=== PATIENT | female | born 1970 | race Caucasian/White ===

== ENCOUNTER 2019-04-18 14:28 | Emergency (ER) | payer OTHER ==
--- NOTE | 2019-04-18 16:01 | EDM.PDOC ---
ED HPI GENERAL MEDICAL PROBLEM - General Chief Complaint: Lower Extremity Injury/Pain Stated Complaint: LEFT KNEE PAIN Time Seen by Provider: 04/18/19 14:48 Source of Information: Reports: Patient History Limitations: Reports: No Limitations - History of Present Illness INITIAL COMMENTS - FREE TEXT/NARRATIVE: 49 yo female presents to ER with pain in left knee. NO trauma to the knee. Pain begain last weekend. she was seen in this AM and had x-ray which was negative an MRI was ordered for later this week. pt did go to work today and states that her knee is popping and so painful she can hardly bear weight. no new injury to knee today. left;knee Pain Score (Numeric/FACES): 9 - Related Data Allergies Allergy/AdvReac Type Severity Reaction Status Date / Time adhesive Allergy Cannot Verified 04/18/19 15:01 Remember meloxicam Allergy Diarrhea Verified 04/18/19 15:01 Home Meds: Home Meds Vitamin B Complex [Complex B-100] 1 each PO DAILY 02/06/14 [History] Biotin 1 mg PO DAILY 03/16/14 [History] Cyclobenzaprine [Flexeril] 10 mg PO TID 03/16/14 [History] Ergocalciferol (Vitamin D2) [Drisdol] 50,000 unit PO DAILY 03/16/14 [History] Fluticasone Propionate [Flonase] 1 spray INH DAILY 03/16/14 [History] Levothyroxine Sodium [Synthroid] 75 mcg PO DAILY 03/16/14 [History] Promethazine [Phenergan] 25 mg PO Q4H PRN 03/16/14 [History] traZODone 50 mg PO BEDTIME 03/16/14 [History] Meclizine [Antivert] 25 mg PO DAILY 04/18/19 [History] Past Medical History - Past Surgical History HEENT Surgical History: Reports: Oral Surgery, Tonsillectomy GI Surgical History: Reports: Bariatric Procedure Female Surgical History: Reports: Section, D&C Musculoskeletal Surgical History: Reports: Carpal Tunnel, Knee Replacement, Shoulder Replacement Social & Family History - Tobacco Use Smoking Status *Q: Never Smoker - Recreational Drug Use Recreational Drug Use: No Review of Systems - Review of Systems Review Of Systems: See Below Constitutional: Denies: Chills, Fever Respiratory: Denies: Shortness of Breath, Wheezing Cardiovascular: Denies: Chest Pain GI/Abdominal: Denies: Abdominal Pain ED EXAM, GENERAL - Physical Exam Exam: See Below Exam Limited By: No Limitations General Appearance: Alert, WD/WN, No Apparent Distress Head: Atraumatic, Normocephalic Neck: Normal Inspection, Supple, Non-Tender Respiratory/Chest: No Respiratory Distress, Lungs Clear. No: Crackles, Rhonchi , Wheezing Cardiovascular: Regular Rate, Rhythm, No Murmur Extremities: Joint Swelling (mild left knee) Neurological: Alert, Oriented Skin Exam: Warm, Dry, Intact Course - Vital Signs Last Recorded V/S: Last Vital Signs Temp 36.1 C 04/18/19 15:00 Pulse 106 H 04/18/19 15:00 Resp 16 04/18/19 15:00 BP 156/108 H 04/18/19 15:00 Pulse Ox 96 04/18/19 15:00 - Re-Assessments/Exams Free Text/Narrative Re-Assessment/Exam: 04/18/19 16:11 continue with plan for MRI. weight bearing as tolerated. naproxen with ultram as needed for severe pain Departure - Departure Time of Disposition: 15:57 Disposition: Home, Self-Care 01 Condition: Good Clinical Impression: Knee pain, left Qualifiers: Chronicity: acute Qualified Code(s): M25.562 - Pain in left knee - Discharge Information *PRESCRIPTION DRUG MONITORING PROGRAM REVIEWED*: Not Applicable *COPY OF PRESCRIPTION DRUG MONITORING REPORT IN PATIENT JACE: Not Applicable Instructions: Knee Pain, Adult, [id number] Referrals: Shilpa Mancini PA [Primary Care Provider] - Forms: ED Department Discharge Additional Instructions: activity as tolerated use walker or cane ice as much as possible naproxen 1-2 tablets every 12 hours as needed for pain may use ultram for severe pain
== END 2019-04-18 16:21 | disposition home or self-care (01) ==
LOC: JP.ED 14:28
DX: M25.562 Pain in left knee (principal); Z88.8 Allergy status to other drugs, medicaments and biological substances; Z88.6 Allergy status to analgesic agent; Z79.899 Other long term (current) drug therapy
CPT/HCPCS: 99283

== ENCOUNTER 2020-07-18 08:10 | Day surgery (SDC) | payer OTHER ==
[2020-07-18] MEDS ORDERED: fentaNYL 100 MCG/2 ML SDV ONE (08:55)
[2020-07-18] MEDS ORDERED: Propofol 200 MG/20 ML SDV ONE (08:55)
[2020-07-18] MEDS ORDERED: Midazolam 1 MG/ML 2 ML SDV ONE (08:55)
[2020-07-18] MEDS ORDERED: Lactated Ringers 1,000 ML IV SCH (09:00)
[2020-07-18] MEDS ORDERED: Cyanocobalamin (Vitamin B12) 1,000 MCG/ML SDV IM ONE (09:30)
[2020-07-18] MEDS ORDERED: Glycopyrrolate 0.2 MG/ML 2 ML SDV IVPUSH ONE (10:00)
[2020-07-18] MEDS ORDERED: MVI, Adult with Vitamin K 10 ML, Thiamine 200 MG, Chromium/Copper/Mang/Selen/Zn 1 ML in... IV ONE ×4 (10:00)
--- NOTE | 2020-07-24 08:08 | OR ---
DATE OF PROCEDURE: 07/18/2020 SURGEON: Kennedy Gagnon MD PREOPERATIVE DIAGNOSIS: Weight regain status post Manjit-en-Y gastric bypass. 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 OPERATIVE PROCEDURE: Upper gastrointestinal endoscopy. ANESTHESIA: IV sedation. INDICATION FOR PROCEDURE: This is a 50-year-old status post Manjit-en-Y gastric bypass in 2009. Her preoperative weight at that time was 239 pounds and she did get down into the low 200s. Recently, she had weight regain and now is presently weighing 386 pounds. The plan is to proceed with upper GI endoscopy to try and identify correctable problems in regard to her bypass. Potential risks including bleeding and perforation were discussed, and the patient wishes to proceed. DETAILS OF PROCEDURE: The patient was taken to the operating room, placed in a left lateral decubitus position. IV sedation was administered, after which the upper GI endoscope was passed orally through the length of esophagus and into the gastric pouch and from there through the gastrojejunostomy roughly 20 cm into the Manjit limb. The gastrojejunostomy was fairly normally sized. There was, however, apart from that a fistula between the gastric pouch and the remainder of the stomach. The scope which measured a centimeter did not quite through that area, but certainly large enough that substantial amount of food would get past that and this resulted in significant problems with the weight regain. However, this would be likely surgically correctable. The scope was then withdrawn. The above findings reconfirmed, and the procedure concluded. Kennedy Gagnon MD /[id number]
== END 2020-07-18 13:09 | disposition home or self-care (01) ==
LOC: JP.SDS 08:10
PROVIDERS: ATTEND Surgery
DX: K31.6 Fistula of stomach and duodenum (principal); I10 Essential (primary) hypertension; E66.01 Morbid (severe) obesity due to excess calories; Z98.84 Bariatric surgery status; Z68.44 Body mass index [BMI] 60.0-69.9, adult
CPT/HCPCS: 43235; J2250; J2704; J3010; J3411; J3420; J3490; J7120

== ENCOUNTER 2020-09-01 06:22 | Inpatient (IN) | payer OTHER ==
[2020-09-01] MEDS ORDERED: cefOXitin 2 GM Vial ONE (06:54)
[2020-09-01] MEDS ORDERED: Celecoxib 200 MG Cap PO ONE (07:00)
[2020-09-01] MEDS ORDERED: Acetaminophen 500 MG Tab PO ONE (07:00)
[2020-09-01] MEDS ORDERED: Celecoxib 200 MG Cap PO SCH (07:00)
[2020-09-01] MEDS ORDERED: Scopolamine 1.5 MG Transdermal Patch TOP ONE (07:00)
[2020-09-01] MEDS ORDERED: Dextrose 5%-Lactated Ringers 1,000 ML IV SCH ×2 (07:30→12:45)
[2020-09-01] MEDS ORDERED: fentaNYL 250 MCG/5 ML SDV ONE ×2 (08:02→09:26)
[2020-09-01] MEDS ORDERED: Glycopyrrolate 0.2 MG/ML 5 ML MDV ONE (08:03)
[2020-09-01] MEDS ORDERED: Neostigmine Methylsulfate 1 MG/ML 5 ML Syringe ONE (08:03)
[2020-09-01] MEDS ORDERED: Ondansetron 4 MG/2 ML SDV ONE (08:03)
[2020-09-01] MEDS ORDERED: Dexamethasone 4 MG/ML SDV ONE (08:03)
[2020-09-01] MEDS ORDERED: Rocuronium 50 MG/5 ML Vial ONE ×2 (08:03→10:23)
[2020-09-01] MEDS ORDERED: Propofol 200 MG/20 ML SDV ONE (08:03)
[2020-09-01] MEDS ORDERED: Succinylcholine 200 MG/10 ML MDV ONE (08:03)
[2020-09-01] MEDS ORDERED: Lactated Ringers 1,000 ML ONE (08:06)
[2020-09-01] MEDS ORDERED: cefOXitin 2 GM in Sodium Chloride 0.9% 50 ML IV ONE (08:15)
[2020-09-01] MEDS ORDERED: Ketamine 500 MG/5 ML MDV IV SCH (08:45)
[2020-09-01] MEDS ORDERED: Ketamine 50 MG in Sodium Chloride 0.9% 49.5 ML IV SCH (08:45)
[2020-09-01] MEDS ORDERED: Lidocaine 1% with EPINEPHrine 1:100,000 50 ML MDV ONE (10:34)
[2020-09-01] MEDS ORDERED: Bupivacaine 0.5% 50 ML MDV ONE (10:34)
[2020-09-01] MEDS ORDERED: hydrOXYzine HCL 100 MG/2 ML SDV IM ONE (11:33)
[2020-09-01] MEDS ORDERED: Naloxone 0.4 MG/ML SDV IVPUSH PRN (11:39)
[2020-09-01] MEDS ORDERED: diphenhydrAMINE 50 MG/ML SDV IVPUSH PRN ×2 (11:39→13:00)
[2020-09-01] MEDS ORDERED: diphenhydrAMINE 25 MG Cap PO PRN (11:39)
[2020-09-01] MEDS ORDERED: Ondansetron 4 MG/2 ML SDV IVPUSH PRN (11:39)
[2020-09-01] MEDS ORDERED: HYDROmorphone/Normal Saline 15 MG/30 ML PCA IV PRN (11:39)
[2020-09-01] MEDS ORDERED: Naloxone 0.4 MG/ML SDV IV PRN (12:00)
[2020-09-01] MEDS ORDERED: Cyclobenzaprine 10 MG Tab PO PRN (12:37)
[2020-09-01] MEDS: Ketoconazole 2% Crm 30 GM Tube TOP SCH ×2 (12:38→20:33)
[2020-09-01] MEDS ORDERED: Meclizine 25 MG Tab PO PRN (12:40)
[2020-09-01] MEDS ORDERED: Albuterol/Ipratropium 3.0-0.5 MG/3 ML Neb Soln INH PRN (13:00)
[2020-09-01] MEDS ORDERED: Calcium Gluconate 10% 1 GM/10 ML SDV IVPUSH PRN (13:00)
[2020-09-01] MEDS ORDERED: hydrOXYzine HCL 100 MG/2 ML SDV IM PRN (13:00)
[2020-09-01] MEDS ORDERED: Acetaminophen 500 MG Tab PO PRN (13:00)
[2020-09-01] MEDS ORDERED: Labetalol 20 MG/4 ML Syringe IVPUSH PRN (13:00)
[2020-09-01] MEDS: Ondansetron 4 MG/2 ML SDV IVPUSH PRN ×2 (15:11→23:57)
[2020-09-01] MEDS: Metoclopramide 10 MG/2 ML SDV IVPUSH PRN (15:18)
[2020-09-01] MEDS: cefOXitin 2 GM in Sodium Chloride 0.9% 50 ML IV SCH ×2 (15:20→20:40)
[2020-09-01] MEDS ORDERED: Pantoprazole 40 MG Vial IVPUSH SCH (16:00)
[2020-09-01] MEDS ORDERED: MVI, Adult with Vitamin K 10 ML, Thiamine 200 MG, Chromium/Copper/Mang/Selen/Zn 1 ML in... IV SCH ×4 (16:00)
[2020-09-01] MEDS: Heparin Sodium 5,000 Units/ML Vial SUBCUT SCH (16:06)
[2020-09-01] MEDS: Acetaminophen 500 MG Tab PO SCH ×2 (16:12→23:26)
[2020-09-01] MEDS: traZODone 50 MG Tab PO SCH (20:34)
[2020-09-01] MEDS: Cyclobenzaprine 10 MG Tab PO SCH (20:39)
[2020-09-02] MEDS ORDERED: Loratadine 10 MG Tab PO ONE (00:47)
[2020-09-02] MEDS ORDERED: Pseudoephedrine 30 MG Tab PO ONE (00:47)
[2020-09-02] MEDS: Metoclopramide 10 MG/2 ML SDV IVPUSH PRN (01:14)
[2020-09-02] MEDS: cefOXitin 2 GM in Sodium Chloride 0.9% 50 ML IV SCH ×3 (03:20→15:17)
[2020-09-02] MEDS: Heparin Sodium 5,000 Units/ML Vial SUBCUT SCH ×2 (03:21→15:58)
[2020-09-02] MEDS ORDERED: Iohexol 647 MG/ML 50 ML SDV PO STA (03:36)
[2020-09-02] MEDS ORDERED: Ondansetron 4 MG Tab.DIS PO PRN (06:48)
[2020-09-02] MEDS: Levothyroxine 50 MCG Tab PO SCH (07:05)
[2020-09-02] MEDS: Dextrose 5%-Lactated Ringers 1,000 ML IV SCH (07:12)
[2020-09-02] MEDS: Acetaminophen 500 MG Tab PO SCH ×3 (08:20→23:21)
[2020-09-02] MEDS: Cyclobenzaprine 10 MG Tab PO SCH ×2 (08:40→21:03)
[2020-09-02] MEDS: Bisacodyl 5 MG Tab PO SCH ×2 (08:40→21:03)
[2020-09-02] MEDS: Fluticasone Propionate Nasal Spray 16 GM Bottle NASBOTH SCH (08:40)
[2020-09-02] MEDS: Docusate Sodium 100 MG Cap PO SCH ×2 (08:41→21:03)
[2020-09-02] MEDS: Celecoxib 200 MG Cap PO SCH ×2 (08:41→21:03)
[2020-09-02] MEDS: Ketoconazole 2% Crm 30 GM Tube TOP SCH ×2 (09:25→21:04)
[2020-09-02] MEDS: SCOPOLAMINE PATCH CHECK TOP SCH (09:25)
--- NOTE | 2020-09-02 10:11 | OR ---
DATE OF PROCEDURE: 09/01/2020 SURGEON: Kennedy Gagnon MD PREOPERATIVE DIAGNOSIS: Weight regain, status post gastric bypass associated with gastrogastric fistula. POSTOPERATIVE DIAGNOSES: 1. Weight regain, status post gastric bypass associated with gastrogastric fistula. 2. Segment of small bowel ischemic status post takedown of previous jejunojejunostomy. 3. Extensive intraabdominal adhesions. OPERATIVE PROCEDURES: Diagnostic laparoscopy converted to laparotomy with: 1. Revision of Manjit-en-Y gastric bypass (56363). 2. Small bowel resection (27292). 3. Placement of Interceed mesh to limit recurrent adhesion formation between pelvic and abdominal wall and underlying viscera (37605). ANESTHESIA: General. NAPPER GRINDER: Renetta Ureña PA-C INDICATIONS FOR PROCEDURE: This is a 50-year-old status post Manjit-en-Y gastric bypass in 2009. Her preoperative weight at that time was 434 pounds. She did get a good initial result, but there was progressive weight regain recently with weight presently at 386 pounds. The patient underwent an upper endoscopy recently which showed a gastrogastric fistula. The plan will be to proceed with a laparoscopic or if necessary open repair of the gastrogastric fistula. Given the amount of obesity, we will also refashion the Manjit limb to maximize the degree of malabsorption within physiologic limits. The potential risks of the procedure including bleeding, infection, leaks from various GI tract closures, problems with bowel obstruction over time, as well as possibility of cardiopulmonary, septic, or hemorrhagic complications leading to were discussed, and the patient wishes to proceed. DETAILS OF PROCEDURE: The patient was taken to the operating room, placed in a supine position. After general endotracheal anesthesia was induced, she was converted to a lithotomy position. Leonardo catheter was inserted, and the abdomen prepped and draped. 15 cm inferior and 5 cm left of the xiphoid process, a transverse incision was made and the peritoneal cavity entered under direct vision with an Optiview trocar, inflated to 15 mmHg pressure with CO2. Laparoscope was then reinserted. No underlying trocar insertion site injuries were seen. Following this, bilateral subcostal transversus abdominis plane blocks were placed and the 5 additional trocars were placed across the upper and mid abdomen. Some adhesions between the previous left lateral trocar site as well as the liver and anterior abdominal wall were then taken down with Harmonic Scalpel. Initial dissection in the area of the previous gastrojejunostomy revealed the area of fistulous formation. Once this was encircled, this was then divided with the SONAL black load. At that point, there appeared to be a free discontinuity between the gastric pouch and the previous stomach. An Domenica tube measuring 32-Maori had been placed per Anesthesia through the area of gastric pouch and through the proximal Manjit limb. The gastric pouch was then also imbricated with some [id number] sutures of 0 Ethibond stitch to further reduce the gastric pouch volume. At that point, the upper abdominal component appeared to be satisfactorily completed and was reinforced with some fibrin sealant. A drain was subsequently felt not to be necessary in that area. Attention was then taken to the small bowel. As one traced down the Manjit limb, it was noted to measure 150 cm. However, there were dense adhesions in the area of the previous jejunojejunostomy which was not easily visible given the patient's degree of obesity. Given this, we elected to convert to a small open incision. Trocars were removed, the peritoneal cavity deflated, and the remainder of the revision was completed with an open approach. Incision was made from the umbilicus roughly handsbreadth towards the xiphoid. This was much smaller than if the entire procedure had been done as an open approach. The adhesions along the jejunojejunostomy were then taken down. This allowed mobilization of it upward. The Manjit limb was once again confirmed to be 150 cm and was divided flush with the jejunojejunostomy. This area was somewhat ischemic and around 10 cm of the small bowel needed to be resected at that point to provide a distal Manjit limb that was satisfactorily vascularized. This was accomplished with SONAL wu at both the bowel and mesenteric level, and that specimen delivered from the field. The ileocecal valve was then identified and was traced out 160 cm distal to that due to the patient's small bowel elementary length of 300 cm. At that point, a [id number] enteroenterostomy was accomplished with an internal firing of the Endo-SONAL 60 mm stapler. The common opening was closed transversely with the same stapler and angles anastomosed reinforced with some 3-0 Vicryl stitch and mesenteric defect closed with 2-0 silk stitch. Of note, at this point, the Manjit limb was 140 cm, common limb 160 cm, and the newly fashioned biliopancreatic limb was 300 cm. The area of dissection was then inspected. No problems were noted. The small bowel anastomosis was reinforced with some fibrin sealant as was the mesenteric defect, and the abdomen irrigated with cefoxitin-containing saline solution. To limit recurrent adhesion formation between the pelvic and abdominal wall and underlying viscera, Interceed mesh was placed underneath the incision from there down toward the pelvis. The midline fascia was then approximated with #2 Vicryl stitch, the subcutaneous tissue with 2 layers of 3-0 and 4- 0 Vicryl stitch, and the skin with wu. This included stapling the previous trocar sites. The patient was taken to the recovery room in satisfactory condition. Physician music assistant, Renetta Ureña, played an essential role in assisting in this case, helping to position the patient, retract structures as needed, as well as suturing and cutting sutures when indicated. Her presence improved patient safety and decreased operative time. Kennedy Gagnon MD /[id number]
--- NOTE | 2020-09-02 10:13 | CR ---
UGI Limited HISTORY: Postbariatric surgery FINDINGS: Patient swallowed water-soluble contrast. Upright views of the abdomen show no evidence of extravasation or obstruction. IMPRESSION: Status post bariatric surgery No extravasation or obstruction seen
[2020-09-02] MEDS: Pantoprazole 40 MG Tab.CR PO SCH (11:33)
--- NOTE | 2020-09-02 15:18 | PN ---
DATE OF SERVICE: 09/02/2020 SUBJECTIVE: Sachin is postoperative day #1. Upper GI was normal. Vital signs have been stable with the exception of 2 elevated blood pressures at 190/90 and 140/87, thought to be associated with headache. Pain has been controlled with a PROCESS ANALYST. Oral intake 690, urine output via Leonardo catheter is 6225. REVIEW OF SYSTEMS: The remainder of review of systems is negative for any pertinent positives or negatives. OBJECTIVE: GENERAL: Sachin Scott is a pleasant 50-year-old female. She is alert and orientated. VITAL SIGNS: TPR at 0654 is 97.6, 95, 18, and blood pressure 135/87. HEENT: Negative. NECK: Supple. HEART: Regular rate and rhythm. LUNGS: Clear. ABDOMEN: Dressing is dry and intact. Abdominal binder is on. EXTREMITIES: SCDs are on, and there is no peripheral edema. ASSESSMENT: 1. Laparoscopic to laparotomy with;. a. Revision of Manjit-en-Y gastric bypass surgery. b. Small bowel resection. c. Placement of Interceed mesh. POSTOPERATIVE DIAGNOSES: 1. Weight regain secondary to gastrogastric fistula. 2. Segment small bowel ischemia after takedown of previous jejunojejunostomy. 3. Extensive intraabdominal adhesions. PLAN: 1. Decrease IV to 100 mL per hour. 2. Step 2 gastric bypass diet with no cereal. 3. Discontinue Leonardo. 4. Dulcolax 10 mg p.o. b.i.d. 5. Colace 100 mg p.o. b.i.d. 6. Discontinue Leonardo. 7. May shower. 8. Zofran ODT 4 mg q.4 hours p.r.n. nausea. 9. We will evaluate p.r.n. or in a.m. Renetta Ureña PA-C /[id number]
[2020-09-02] MEDS: MVI, Adult with Vitamin K 10 ML, Thiamine 200 MG, Chromium/Copper/Mang/Selen/Zn 1 ML in... IV SCH ×4 (15:55)
[2020-09-02] MEDS: traZODone 50 MG Tab PO SCH (21:04)
[2020-09-02] MEDS ORDERED: diphenhydrAMINE 25 MG Cap PO PRN (21:05)
[2020-09-03] MEDS: Dextrose 5%-Lactated Ringers 1,000 ML IV SCH ×2 (01:59→16:04)
[2020-09-03] MEDS: Heparin Sodium 5,000 Units/ML Vial SUBCUT SCH ×2 (04:13→16:17)
[2020-09-03] MEDS: Pantoprazole 40 MG Tab.CR PO SCH (07:12)
[2020-09-03] MEDS: Levothyroxine 50 MCG Tab PO SCH (07:12)
[2020-09-03] MEDS: Acetaminophen/HYDROcodone 325-5 MG Tab PO PRN ×4 (07:58→20:03)
[2020-09-03] MEDS: Hyoscyamine 0.125 MG Tab.SL SL PRN ×2 (07:59→16:15)
[2020-09-03] MEDS ORDERED: Cyanocobalamin (Vitamin B12) 1,000 MCG/ML SDV IM ONE (09:00)
[2020-09-03] MEDS: Fluticasone Propionate Nasal Spray 16 GM Bottle NASBOTH SCH (09:11)
[2020-09-03] MEDS: Docusate Sodium 100 MG Cap PO SCH ×2 (09:11→20:06)
[2020-09-03] MEDS: Cyclobenzaprine 10 MG Tab PO SCH ×2 (09:11→20:06)
[2020-09-03] MEDS: Bisacodyl 5 MG Tab PO SCH ×2 (09:11→20:06)
[2020-09-03] MEDS: Celecoxib 200 MG Cap PO SCH ×2 (09:11→20:06)
[2020-09-03] MEDS: Ketoconazole 2% Crm 30 GM Tube TOP SCH ×2 (09:12→20:06)
[2020-09-03] MEDS: SCOPOLAMINE PATCH CHECK TOP SCH (09:12)
--- NOTE | 2020-09-03 11:54 | PN ---
DATE OF SERVICE: 09/03/2020 SUBJECTIVE: Sachin is postop day #2. She is reporting that when she swallows liquids, it hurts to swallow in her midchest like she needs to burp. It is not all the time. Denies any radiation of pain and no shortness of breath and no cough. Pain does not radiate. Vital signs have been stable. She has been up ambulating in the villegas frequently. Oral intake 1940 and urine output 3250. REVIEW OF SYSTEMS: The remainder of review of systems is negative for any pertinent positives and negatives. OBJECTIVE: GENERAL: Sachin Scott is a pleasant, 50-year-old female. VITAL SIGNS: TPR is 96, 96, 18; blood pressure 125/89. HEENT: Negative. NECK: Supple. HEART: Regular rate and rhythm. LUNGS: Clear. ABDOMEN: Dressings dry and intact. Abdominal binder is on. EXTREMITIES: Trace peripheral edema. ASSESSMENT: 1. Laparoscopic to laparotomy with: a. Revision of Manjit-en-Y gastric bypass surgery. b. Small-bowel resection. c. Placement of Interceed mesh. POSTOPERATIVE DIAGNOSES: 1. Weight gain secondary to gastrogastric fistula. 2. Segment of small bowel, ischemic, after takedown of previous jejunojejunostomy. 3. Extensive intraabdominal adhesions. Date of procedure: 09/01/2020. Surgeon: Kennedy Gagnon MD. PLAN: 1. Levsin 0.125 mg sublingual every 4 hours p.r.n. esophageal spasms. 2. Discontinue NATIONAL RECRUITER. 3. [place] 5/325 mg 1 to 2 every 4 hours p.r.n. pain. 4. Discontinue Tylenol. 5. Saline lock IV. 6. The patient's nurse was notified that if that pain in her chest does not get better with swallowing, to notify Dr. Gagnon or myself. Continue good pulmonary and ambulation. 7. We will evaluate p.r.n. or in a.m. Renetta Ureña PA-C /[id number]
[2020-09-03] MEDS: Metoclopramide 10 MG/2 ML SDV IVPUSH PRN (14:30)
[2020-09-03] MEDS: MVI, Adult with Vitamin K 10 ML, Thiamine 200 MG, Chromium/Copper/Mang/Selen/Zn 1 ML in... IV SCH ×4 (16:08)
[2020-09-03] MEDS: traZODone 50 MG Tab PO SCH (20:06)
[2020-09-04] MEDS: Acetaminophen/HYDROcodone 325-5 MG Tab PO PRN ×2 (01:07→06:53)
[2020-09-04] MEDS: Heparin Sodium 5,000 Units/ML Vial SUBCUT SCH (04:53)
[2020-09-04] MEDS: Cyclobenzaprine 10 MG Tab PO SCH (08:30)
[2020-09-04] MEDS: Celecoxib 200 MG Cap PO SCH (08:31)
[2020-09-04] MEDS: Docusate Sodium 100 MG Cap PO SCH (08:31)
[2020-09-04] MEDS: Pantoprazole 40 MG Tab.CR PO SCH (08:31)
[2020-09-04] MEDS: Levothyroxine 50 MCG Tab PO SCH (08:32)
[2020-09-04] MEDS: Fluticasone Propionate Nasal Spray 16 GM Bottle NASBOTH SCH (08:32)
[2020-09-04] MEDS: Ketoconazole 2% Crm 30 GM Tube TOP SCH (08:32)
[2020-09-04] MEDS: Bisacodyl 5 MG Tab PO SCH (08:32)
--- NOTE | 2020-09-04 11:39 | DISCH ---
ADMISSION DIAGNOSES: 1. Weight regain after Manjit-en-Y gastric bypass surgery. 2. Morbid obesity. 3. BMI 67. 4. Essential hypertension. 5. Chronic sinusitis. 6. Allergic rhinitis. 7. Status post Manjit-en-Y gastric bypass surgery. 8. Vitamin D deficiency. 9. B12 deficiency. 10.Osteoarthritis of both knees. 11.Iron deficiency anemia. DISCHARGE DIAGNOSES: Diagnostic laparoscopy converted to laparotomy with: 1. Revision of Manjit-en-Y gastric bypass. 2. Small bowel resection. 3. Placement of Interceed mesh to limit recurrent adhesion formation between pelvic and abdominal wall and underlying viscera. POSTOPERATIVE DIAGNOSES: 1. Weight regain, status post gastric bypass associated with gastrogastric fistula. 2. Segment of small bowel ischemic, status post takedown of previous jejunojejunostomy. 3. Extensive intraabdominal adhesions. 4. Date of procedure: 09/01/2020. Surgeon: Kennedy Gagnon MD. HISTORY: Sachin is a 50-year-old female who is status post Manjit-en-Y gastric bypass surgery in 2009. Her preoperative weight at that time was 434 pounds. She did good initially but had progressive weight regain with the weight presently at 385. Preoperative evaluation of an endoscopy, which revealed a gastrogastric fistula. After preoperative evaluation and discussion of possible risks and possible complications, she wished to proceed with surgical procedure. HOSPITAL COURSE: Sachin had her surgery on 09/01/2020. She had no operative complications. On postoperative day #1, her upper GI was normal. She was started on step 2 gastric bypass diet. Her Leonardo was discontinued and she was started on bowel stimulation. On postoperative day #2, she was changed to oral pain medication, STEMHOLE BORER was discontinued, and she was having some pain when she would swallow in her upper chest and started on Levsin. On postoperative day #3, Sachin's pain was controlled. Her activity was good. Vital signs stable. Oral intake adequate at 1160. Urine output was 2000. She had 2 bowel movements and she was able to be discharged to home. PHYSICAL EXAMINATION: GENERAL: Sachin Scott is a pleasant 50-year-old female. VITAL SIGNS: Height 5 feet 3 inches, weight 381 pounds 9.6 ounces, BMI is 67.6. TPR 97.6, 89, 16, blood pressure 102/62. HEENT: Negative. NECK: Supple. HEART: Regular rate and rhythm. LUNGS: Clear. ABDOMEN: Aquacel dressings on the lower open incision and she has trocar sites sutured on an upper part of the abdomen. Abdominal binder has been on. EXTREMITIES: Without peripheral edema. DISPOSITION: Discharged to home. CONDITION: Stable and improving. FOLLOWUP: Appointment with Renetta Ureña PA-C, on 09/15/2020 at 10:30 a.m. HOME MEDICATIONS: 1. Celebrex 200 mg p.o. b.i.d. #28. 2. Hyoscyamine 0.125 mg sublingual every 4 hours p.r.n. esophageal spasms. 3. [place] 5/325 mg 1 tablet oral q.6 hours p.r.n. pain, #28. 4. Zofran ODT 4 mg p.o. q.4 hours p.r.n. nausea, vomiting #30. 5. She is to resume home medication: a. Pseudoephedrine 120 mg p.o. b.i.d. b. Zyrtec 10 mg p.o. b.i.d. c. Trazodone 100 to 150 mg p.o. at bedtime. d. Depo-Provera injection every 3 months. e. Triamcinolone cream 1 applicator topical t.i.d. f. Sumatriptan 100 mg p.o. p.r.n. headache. g. Phenergan 25 mg q.8 hours p.r.n. nausea. h. Nystatin cream 1 applicator topical t.i.d. i. Nystatin applicator topical q.12. j. Skelaxin 800 mg p.o. b.i.d. k. Antivert 25 mg p.o. t.i.d. p.r.n. dizziness. l. Synthroid 150 mcg p.o. daily. m. Flonase 1 to 2 sprays in each nostril daily. n. Epinephrine 0.3 IM 1 time p.r.n. o. Voltaren 1% gel 1 applicator topical q.i.d. p. Clotrimazole 1% topical b.i.d. p.r.n. q. Clobetasol 0.05% 1 applicator topical b.i.d. r. Astelin nasal solution 2 sprays in each nostril b.i.d. s. Tylenol 650 mg q6 to 8 hours p.r.n. pain. DIET: Step 2 gastric bypass diet with no cereal until 09/16/2020. ACTIVITY: No lifting greater than 10 pounds for 6 weeks. Other activity: Walk 6 times daily inside your home. Driving: Do not drive for 1 week or within 6 to 8 hours after taking [place]. Shower/bathing: May shower. DISCHARGE INSTRUCTIONS: Keep operative site clean and dry. Take off Aquacel dressing on 09/07/2020. Wear abdominal binder for 6 weeks or longer if tolerated. Notify provider if any fever, increased pain, swelling, redness, drainage, nausea, vomiting, and use incentive spirometer 10 times every hour while awake for 1 week. /[id number]
== END 2020-09-04 09:30 | disposition home or self-care (01) | DRG 329 ==
LOC: JP.SDSSCHI 06:22 → JP.SDS 06:22 → EDSTATUS 09:15 → JP.MS 11:00
PROVIDERS: ADMIT Surgery; ATTEND Surgery
PROC: 0DB80ZZ Excision of Small Intestine, Open Approach (ICD-10-PCS; principal; 2020-09-01)
PROC: 0D180Z8 Bypass Small Intestine to Small Intestine, Open Approach (ICD-10-PCS; 2020-09-01)
PROC: 3E0M05Z Introduction of Adhesion Barrier into Peritoneal Cavity, Open Approach (ICD-10-PCS; 2020-09-01)
DX: K95.89 Other complications of other bariatric procedure (principal); K55.011 Focal (segmental) acute (reversible) ischemia of small intestine; Z68.44 Body mass index [BMI] 60.0-69.9, adult; K31.6 Fistula of stomach and duodenum; R63.5 Abnormal weight gain; I10 Essential (primary) hypertension; J32.9 Chronic sinusitis, unspecified; E55.9 Vitamin D deficiency, unspecified; E53.8 Deficiency of other specified B group vitamins; D50.9 Iron deficiency anemia, unspecified; M17.0 Bilateral primary osteoarthritis of knee; K66.0 Peritoneal adhesions (postprocedural) (postinfection); J30.9 Allergic rhinitis, unspecified; K21.9 Gastro-esophageal reflux disease without esophagitis; Z96.659 Presence of unspecified artificial knee joint; Z91.09 Other allergy status, other than to drugs and biological substances; Z88.8 Allergy status to other drugs, medicaments and biological substances; Z79.899 Other long term (current) drug therapy
CPT/HCPCS: 36415; 74240; 74240-26; 80053; 81025; 82728; 83735; 83880; 84100; 85025; 86850; 86900; 86901; 88307; 93005; 93010; 94762; A9270-GY; C9113; J0171; J0330; J0694; J1100; J1170; J1644; J1790; J2405; J2704; J2710; J2765; J2795; J3010; J3410; J3411; J3420; J3475; J3490; J7050; J7120; J7121

== ENCOUNTER 2021-01-15 08:50 | Day surgery (SDC) | payer OTHER ==
[~2021-01-15 08:50] MED LIST: Dexamethasone 4 MG/ML SDV ONE; Glycopyrrolate 0.2 MG/ML 5 ML MDV ONE; Meropenem 500 MG SDV ONE; Neostigmine Methylsulfate 1 MG/ML 5 ML Syringe ONE; Ondansetron 4 MG/2 ML SDV ONE; Propofol 200 MG/20 ML SDV ONE; Rocuronium 50 MG/5 ML Vial ONE; Succinylcholine 200 MG/10 ML MDV ONE; fentaNYL 250 MCG/5 ML SDV ONE
[2021-01-15] MEDS ORDERED: Acetaminophen 500 MG Tab PO ONE (09:15)
[2021-01-15] MEDS ORDERED: Dextrose 5%-Lactated Ringers 1,000 ML IV SCH (09:30)
[2021-01-15] MEDS ORDERED: Naloxone 0.4 MG/ML SDV IVPUSH PRN (09:32)
[2021-01-15] MEDS ORDERED: HYDROmorphone/Normal Saline 15 MG/30 ML PCA IV PRN (09:32)
[2021-01-15] MEDS ORDERED: Naloxone 0.4 MG/ML SDV IV PRN (10:00)
[2021-01-15] MEDS ORDERED: ceFAZolin 2 GM in Premix Bag 1 BAG IV ONE (10:30)
[2021-01-15] MEDS ORDERED: Lidocaine 1% with EPINEPHrine 1:100,000 50 ML MDV ONE (10:32)
[2021-01-15] MEDS ORDERED: Bupivacaine 0.5% 30 ML SDV ONE (10:32)
[2021-01-15] MEDS ORDERED: Ketamine 500 MG/5 ML MDV IV SCH (10:45)
[2021-01-15] MEDS ORDERED: Ketamine 50 MG in Sodium Chloride 0.9% 49.5 ML IV SCH (10:45)
[2021-01-15] MEDS ORDERED: Ketorolac 60 MG/2 ML SDV ONE (11:13)
[2021-01-15] MEDS ORDERED: hydrOXYzine HCL 100 MG/2 ML SDV IM ONE (11:26)
[2021-01-15] MEDS ORDERED: fentaNYL 100 MCG/2 ML SDV IVPUSH ONE (11:26)
[2021-01-15] MEDS ORDERED: Ondansetron 4 MG/2 ML SDV IVPUSH ONE (11:26)
[2021-01-15] MEDS ORDERED: Linezolid 600 MG in Premix Bag 1 BAG IV ONE (11:30)
[2021-01-15] MEDS ORDERED: oxyCODONE 5 MG Tab PO PRN (12:30)
[2021-01-15] MEDS ORDERED: Metoclopramide 10 MG/2 ML SDV IVPUSH ONE (13:22)
[2021-01-15] MEDS ORDERED: Scopolamine 1.5 MG Transdermal Patch TOP ONE (13:23)
--- NOTE | 2021-01-26 17:44 | OR ---
DATE OF PROCEDURE: 01/15/2021 SURGEON: Kennedy Gagnon MD PREOPERATIVE DIAGNOSIS: Probable stitch abscess involving upper aspect of midline abdominal incision. POSTOPERATIVE DIAGNOSIS: Focal necrotizing infection of the skin, subcutaneous tissue, fascia, and muscle with abdominal wall abscess extending into intraabdominal abscess. OPERATIVE PROCEDURE: Exploration of upper midline wound with: 1. Debridement of abdominal wall (47408). 2. Drainage of the abdominal wall abscess extending into the intraabdominal location (34964). ANESTHESIA: General. ANIMAL CONTROL OFFICER: Renetta Ureña PA-C. INDICATIONS FOR PROCEDURE: This is a 51-year-old female who is being admitted today for incisional hernia repair with mesh. On preoperative examination, she, however, was noted to have developed a marked area of redness and induration in the upper aspect of a midline incision. This incision extended from the umbilicus up to roughly handsbreadth towards the xiphoid. That area obviously at this point likely involved some infection, most likely a stitch abscess, and given this, it would be inappropriate to repair the hernia with mesh at this time. Plan will be to proceed with exploration of the abdominal wall with debridement and drainage of that area. Potential risks of the procedure including bleeding, infection, injury to underlying viscera, continued need for subsequent hernia repair were all reviewed, and the patient wishes to proceed. DETAILS OF PROCEDURE: The patient was taken to operating room, and after general endotracheal anesthetic was induced, the abdomen was prepped and draped. An elliptical incision in line with the upper aspect of the midline incision was made and carried down through the skin, subcutaneous tissue. There was obviously some necrotizing infection involving skin, subcutaneous tissue, fascia, and musculature. As one extended this elliptical incision downward in the lower aspect, an area of creamy purulent material was obtained. The cultures of this were sent. Initial Gram stain showed gram-positive cocci. The extent of the abscess that had been was noted to extend into the intraabdominal location with there being essentially a full-thickness excision of the abdominal wall into the area of the abscess well contained by the underlying omentum. This area was then fully evacuated and irrigated with antibiotic-containing saline solution. The midline fascia was then approximated with a #2 Vicryl stitch and the skin and subcutaneous tissue were then packed open with Iodoform gauze, and the patient was taken to the recovery room in satisfactory condition. The plan at this point will be to discharge the patient today per the discussion with the patient and her . She will be sent home with oxycodone for pain along with Tylenol. We will empirically cover her with a course of Septra DS 1 tablet b.i.d. for 7 days based on the Gram stain, and she will be seen with the surgery nurses tomorrow morning to receive some dressing with regard to the open wound, then I will see her back on 01/21/2021. One additional note is, physician gallery assistant, Renetta Ureña, played an essential role in assisting in this case, helping to position the patient, retract structures as needed, as well as suturing and helping pack the wound. Her presence improved patient safety and decreased operative time. Kennedy Gagnon MD /[id number]
== END 2021-01-15 14:46 | disposition home or self-care (01) ==
LOC: JP.SDS 08:50
PROVIDERS: ATTEND Surgery
DX: L02.211 Cutaneous abscess of abdominal wall (principal); K65.4 Sclerosing mesenteritis; M79.89 Other specified soft tissue disorders; E66.01 Morbid (severe) obesity due to excess calories; I10 Essential (primary) hypertension; E03.9 Hypothyroidism, unspecified; Z79.899 Other long term (current) drug therapy; Z79.890 Hormone replacement therapy; Z98.890 Other specified postprocedural states; Z91.09 Other allergy status, other than to drugs and biological substances; Z88.8 Allergy status to other drugs, medicaments and biological substances; Z87.891 Personal history of nicotine dependence; Z68.43 Body mass index [BMI] 50.0-59.9, adult
CPT/HCPCS: 11005; 81025; 87070; 87075; 87077; 87205; 88304; A9270; J0330; J0690; J1100; J1885; J2020; J2185; J2405; J2704; J2710; J2765; J3010; J3410; J3490; J7121

== ENCOUNTER 2021-03-27 05:18 | Inpatient (IN) | payer OTHER ==
[2021-03-27] MEDS ORDERED: Celecoxib 200 MG Cap PO ONE (05:23)
[2021-03-27] MEDS ORDERED: Acetaminophen 500 MG Tab PO ONE (05:30)
[2021-03-27] MEDS ORDERED: Scopolamine 1.5 MG Transdermal Patch TOP SCH (05:30)
[2021-03-27] MEDS ORDERED: ceFAZolin 2 GM in Premix Bag 1 BAG IV ONE (07:00)
[2021-03-27] MEDS ORDERED: fentaNYL 250 MCG/5 ML SDV ONE (07:04)
[2021-03-27] MEDS: Dextrose 5%-Lactated Ringers 1,000 ML IV SCH ×2 (07:04→10:11)
[2021-03-27] MEDS ORDERED: Succinylcholine 200 MG/10 ML MDV ONE (07:05)
[2021-03-27] MEDS ORDERED: Propofol 200 MG/20 ML SDV ONE (07:05)
[2021-03-27] MEDS ORDERED: Dexamethasone 4 MG/ML SDV ONE (07:05)
[2021-03-27] MEDS ORDERED: Ondansetron 4 MG/2 ML SDV ONE (07:05)
[2021-03-27] MEDS ORDERED: Neostigmine Methylsulfate 1 MG/ML 5 ML Syringe ONE (07:05)
[2021-03-27] MEDS ORDERED: Rocuronium 50 MG/5 ML Vial ONE (07:05)
[2021-03-27] MEDS ORDERED: Glycopyrrolate 0.2 MG/ML 5 ML MDV ONE (07:05)
[2021-03-27] MEDS ORDERED: Ketamine 50 MG in Sodium Chloride 0.9% 49.5 ML IV SCH (07:30)
[2021-03-27] MEDS ORDERED: Ketamine 500 MG/5 ML MDV IV SCH (07:30)
[2021-03-27] MEDS ORDERED: Naloxone 0.4 MG/ML SDV IVPUSH PRN (07:38)
[2021-03-27] MEDS ORDERED: HYDROmorphone/Normal Saline 15 MG/30 ML PCA IV PRN (07:38)
[2021-03-27] MEDS ORDERED: Meropenem 500 MG SDV IRR ONE (07:58)
[2021-03-27] MEDS ORDERED: Naloxone 0.4 MG/ML SDV IV PRN (08:00)
[2021-03-27] MEDS ORDERED: Bupivacaine 0.5% 50 ML MDV INJECT ONE (08:02)
[2021-03-27] MEDS ORDERED: Lidocaine 1% with EPINEPHrine 1:100,000 50 ML MDV INJECT ONE (08:02)
[2021-03-27] MEDS ORDERED: oxyCODONE 5 MG Tab PO PRN (09:59)
[2021-03-27] MEDS ORDERED: Ondansetron 4 MG/2 ML SDV IVPUSH PRN (10:02)
[2021-03-27] MEDS ORDERED: Cyclobenzaprine 10 MG Tab PO PRN (12:00)
[2021-03-27] MEDS: Acetaminophen 500 MG Tab PO SCH ×2 (12:27→18:23)
[2021-03-27] MEDS: ceFAZolin 2 GM in Premix Bag 1 BAG IV SCH ×2 (14:14→22:42)
[2021-03-27] MEDS: Acetaminophen/HYDROcodone 325-5 MG Tab PO PRN ×2 (15:33→21:07)
[2021-03-27] MEDS ORDERED: Pseudoephedrine 30 MG Tab PO SCH (16:00)
[2021-03-27] MEDS ORDERED: traZODone 50 MG Tab PO SCH (21:00)
[2021-03-27] MEDS: Pseudoephedrine 30 MG Tab PO PRN (21:07)
[2021-03-27] MEDS: Azelastine Nasal Soln 30 ML Spray Bottle NASBOTH SCH (21:08)
[2021-03-28] MEDS: Acetaminophen 500 MG Tab PO SCH ×2 (00:08→05:40)
[2021-03-28] MEDS: Acetaminophen/HYDROcodone 325-5 MG Tab PO PRN (03:28)
[2021-03-28] MEDS: ceFAZolin 2 GM in Premix Bag 1 BAG IV SCH (05:42)
[2021-03-28] MEDS: Pseudoephedrine 30 MG Tab PO PRN (05:52)
[2021-03-28] MEDS ORDERED: Celecoxib 200 MG Cap PO SCH (09:00)
[2021-03-28] MEDS ORDERED: Fluticasone Propionate Nasal Spray 16 GM Bottle NASBOTH SCH (09:00)
[2021-03-28] MEDS ORDERED: Cetirizine 10 MG Tab PO SCH (09:00)
[2021-03-28] MEDS: Azelastine Nasal Soln 30 ML Spray Bottle NASBOTH SCH (09:34)
--- NOTE | 2021-03-30 13:31 | DISCH ---
FINAL DIAGNOSIS: Recurrent incarcerated incisional hernia with large amount of soft tissue edema of overlying abdominal wall and area of involvement of hernia. SECONDARY DIAGNOSES: 1. Morbid obesity, status post Manjit-en-Y gastric bypass. 2. History of total knee replacement. 3. History of hypertension. 4. Treated hypothyroidism. OPERATIVE PROCEDURES: Done on 03/27, limited exploratory laparotomy with: 1. Resection of edematous soft tissue of abdominal wall overlying hernia site. 2. Repair of recurrent incarcerated incisional hernia without mesh. SUMMARY: This is a 51-year-old, presenting with recurrent incisional hernia that is located in the epigastric area and extending down into the periumbilical region. Prior to this, she had an open wound, what appeared to be some infected sutures, had been removed and wound was closed secondarily. In the last 2 days or so, the wound has become relatively pink and reddened, and at the time of exploration, there was marked edema. There was felt to be some possibility of infection, and amount of edema would make her prone to have wound problems and the large mesh prior to repair of the hernia would have very high risk of getting infected. Given this, we did relatively limited hernia repair overlying the area of incision and closed that. The cultures thus far are not growing anything. She will be sent home on her usual medications plus [place] 5/325 1 tablet q.6 hours p.r.n. pain #18, and then Tylenol up to 4000 mg a day. She has a scopolamine patch which she will take off in [address] Gagnon in [facility] will be on 04/08/2021. She will be restricted to lifting more than 10 pounds for 6 weeks. At some point in the future, we will repair the hernia in a more definitive manner. /[id number]
--- NOTE | 2021-04-03 12:27 | OR ---
DATE OF PROCEDURE: 03/27/2021 SURGEON: Kennedy Gagnon MD PREOPERATIVE DIAGNOSIS: Recurrent incisional hernia with reddened soft tissues overlying previous incision site. POSTOPERATIVE DIAGNOSIS: Recurrent incarcerated incisional hernia with large amount of soft tissue edema overlying hernia site at previous incision. PROCEDURE PERFORMED: Limited exploratory laparotomy with repair of recurrent incarcerated incisional hernia (40904). ANESTHESIA: General. BIODIESEL PRODUCTION ASSOCIATE: Renetta Ureña PA-C INDICATION FOR PROCEDURE: A 51-year-old female presenting with a large recurrent incisional hernia. In the last 2 or 3 days, the patient has developed increased redness at the previous incision site. This previously had been debrided and drained with what appeared to be somewhat of a stitch abscess. The plan is to proceed with exploration of the area if there is overt infection or if the tissue underlying the skin is markedly edematous suggestive of some smoldering infection or simply from the virtue of the large edema at high risk for wound infection if a mesh repair was undertaken. We would do a much more limited repair today and wait for the inflammatory response to settle down before a more extensive procedure involving a large area of mesh placement. This was reviewed with the patient and her preoperatively, and they wished to proceed with that plan. DETAILS OF PROCEDURE: The patient was taken to the operating room and placed in a supine position. The previous incision including skin and underlying subcutaneous tissue were then excised. This all was very markedly edematous. There was no gross purulence. Cultures of the tissue were obtained. This then led down to the hernia sac which was excised, and some underlying adhesions were taken down. There was some incarcerated omentum within the hernia sac. At that point, we decided not to proceed with a larger mesh-type repair given the large amount of edema and possible associated underlying infection. The fascia was then approximated underneath the incision, leaving otherwise a significant amount of hernia inferior to that. This closure was accomplished with a running #2 Vicryl stitch, subcutaneous tissue was approximated with some 4-0 Vicryl stitch, and the skin with wu. Bilateral transversus abdominis plane blocks had been placed, and the patient was taken to the recovery room in satisfactory condition. There were no evident complications. Physician human resources assistant, Renetta Ureña, played an essential role in assisting in this case, helping to position the patient, retract structures as needed, as well as suturing and cutting sutures when indicated. Her presence improved the patient's safety and decreased operative time. Kenneyd Gagnon MD /[id number]
== END 2021-03-28 10:45 | disposition home or self-care (01) | DRG 354 ==
LOC: JP.SDS 05:18 → JP.MS 05:18 → EDSTATUS 07:15 → JP.MS 08:30
PROVIDERS: ADMIT Surgery; ATTEND Surgery
PROC: 0WQF0ZZ Repair Abdominal Wall, Open Approach (ICD-10-PCS; principal; 2021-03-27)
DX: K43.0 Incisional hernia with obstruction, without gangrene (principal); Z68.44 Body mass index [BMI] 60.0-69.9, adult; F11.20 Opioid dependence, uncomplicated; E66.01 Morbid (severe) obesity due to excess calories; E03.9 Hypothyroidism, unspecified; I10 Essential (primary) hypertension; K21.9 Gastro-esophageal reflux disease without esophagitis; G47.30 Sleep apnea, unspecified; E55.9 Vitamin D deficiency, unspecified; Z96.653 Presence of artificial knee joint, bilateral; Z79.899 Other long term (current) drug therapy; Z98.84 Bariatric surgery status; Z98.890 Other specified postprocedural states; Z79.890 Hormone replacement therapy; Z79.51 Long term (current) use of inhaled steroids; Z91.09 Other allergy status, other than to drugs and biological substances; Z87.891 Personal history of nicotine dependence
CPT/HCPCS: 36415; 80053; 82728; 83735; 84100; 84443; 85027; 87070; 87075; 87205; 88302; 88304; 94762; A9270-GY; J0171; J0330; J0690; J1100; J1170; J2020; J2185; J2405; J2704; J2710; J2795; J3010; J3490; J7121

== ENCOUNTER 2021-07-28 06:06 | Inpatient (IN) | payer OTHER ==
[2021-07-28] MEDS ORDERED: Celecoxib 200 MG Cap PO ONE (06:30)
[2021-07-28] MEDS ORDERED: Dextrose 5%-Lactated Ringers 1,000 ML IV SCH (06:30)
[2021-07-28] MEDS ORDERED: Acetaminophen 500 MG Tab PO ONE (06:30)
[2021-07-28] MEDS ORDERED: Bupivacaine 0.5% 50 ML MDV ONE (06:38)
[2021-07-28] MEDS ORDERED: Lidocaine 1% with EPINEPHrine 1:100,000 50 ML MDV ONE (06:38)
[2021-07-28] MEDS ORDERED: Midazolam 1 MG/ML 2 ML SDV ONE (06:58)
[2021-07-28] MEDS ORDERED: Succinylcholine 200 MG/10 ML MDV ONE (06:58)
[2021-07-28] MEDS ORDERED: Rocuronium 50 MG/5 ML Vial ONE ×2 (06:58→10:26)
[2021-07-28] MEDS ORDERED: Neostigmine Methylsulfate 1 MG/ML 5 ML Syringe ONE (06:58)
[2021-07-28] MEDS ORDERED: Propofol 200 MG/20 ML SDV ONE (06:58)
[2021-07-28] MEDS ORDERED: fentaNYL 250 MCG/5 ML SDV ONE ×2 (06:58→10:30)
[2021-07-28] MEDS ORDERED: Glycopyrrolate 0.2 MG/ML 5 ML MDV ONE (06:58)
[2021-07-28] MEDS ORDERED: Ondansetron 4 MG/2 ML SDV ONE (06:58)
[2021-07-28] MEDS ORDERED: Dexamethasone 4 MG/ML SDV ONE (06:58)
[2021-07-28] MEDS ORDERED: ceFAZolin 2 GM in Premix Bag 1 BAG IV ONE (07:30)
[2021-07-28] MEDS ORDERED: SODIUM CHLORIDE 0.9% IV SCH (08:00)
[2021-07-28] MEDS ORDERED: KETAMINE IV SCH (08:00)
[2021-07-28] MEDS ORDERED: Ketamine 500 MG/5 ML MDV IV SCH (08:00)
[2021-07-28] MEDS ORDERED: Ondansetron 4 MG/2 ML SDV IVPUSH PRN ×2 (09:31→14:00)
[2021-07-28] MEDS ORDERED: diphenhydrAMINE 50 MG/ML SDV IVPUSH PRN ×2 (09:31→14:00)
[2021-07-28] MEDS ORDERED: Naloxone 0.4 MG/ML SDV IVPUSH PRN (09:31)
[2021-07-28] MEDS ORDERED: diphenhydrAMINE 25 MG Cap PO PRN (09:31)
[2021-07-28] MEDS: HYDROmorphone/Normal Saline 15 MG/30 ML PCA IV PRN ×2 (09:57→20:47)
[2021-07-28] MEDS ORDERED: Meropenem 500 MG SDV ONE (10:31)
[2021-07-28] MEDS ORDERED: Lactated Ringers 1,000 ML ONE ×2 (11:31)
[2021-07-28] MEDS ORDERED: fentaNYL 100 MCG/2 ML SDV ONE (11:47)
[2021-07-28] MEDS: hydrOXYzine HCL 100 MG/2 ML SDV IM ONE ×2 (12:41→12:42)
[2021-07-28] MEDS: Cyclobenzaprine 10 MG Tab PO PRN ×2 (13:27→22:19)
[2021-07-28] MEDS ORDERED: hydrOXYzine HCL 100 MG/2 ML SDV IM PRN (14:00)
[2021-07-28] MEDS ORDERED: Metoclopramide 10 MG/2 ML SDV IVPUSH PRN (14:00)
[2021-07-28] MEDS ORDERED: Labetalol 20 MG/4 ML Syringe IVPUSH PRN (14:00)
[2021-07-28] MEDS: Dextrose 5%-Lactated Ringers 1,000 ML IV SCH ×2 (14:05→22:02)
[2021-07-28] MEDS: MVI, Adult with Vitamin K 10 ML, Thiamine 200 MG, Zinc/Copper/Manganese/Selenium 1 ML i... IV SCH ×4 (15:27)
[2021-07-28] MEDS: ceFAZolin 2 GM in Premix Bag 1 BAG IV SCH ×2 (15:27→22:39)
[2021-07-28] MEDS: Pantoprazole 40 MG Vial IVPUSH SCH (15:28)
[2021-07-28] MEDS: Acetaminophen 500 MG Tab PO SCH ×2 (15:29→22:20)
[2021-07-28] MEDS: Pseudoephedrine 30 MG Tab PO PRN (18:31)
[2021-07-28] MEDS: Oxybutynin 5 MG Tab PO SCH (22:18)
[2021-07-28] MEDS: traZODone 50 MG Tab PO SCH (22:19)
[2021-07-29] MEDS: Dextrose 5%-Lactated Ringers 1,000 ML IV SCH ×2 (04:23→09:00)
[2021-07-29] MEDS: Pseudoephedrine 30 MG Tab PO PRN (04:26)
[2021-07-29] MEDS: Acetaminophen 500 MG Tab PO SCH ×4 (04:27→22:10)
[2021-07-29] MEDS ORDERED: Ondansetron 4 MG Tab.DIS PO PRN (06:52)
[2021-07-29] MEDS: ceFAZolin 2 GM in Premix Bag 1 BAG IV SCH (07:48)
--- NOTE | 2021-07-29 07:50 | PN ---
DATE OF SERVICE: 07/29/2021 SUBJECTIVE: Sachin is postop day 1. Pain has been controlled using the TRANSPORTATION EQUIPMENT PAINTER, Flexeril and Tylenol. Vital signs have been stable. She has been up ambulating. Oral intake 160 and urine output via Leonardo catheter is 3050. Remainder of review of systems negative for any pertinent positives and negatives. OBJECTIVE: GENERAL: Sachin is a pleasant 51-year-old female. She is sleepy but resting comfortably in bed. VITAL SIGNS: TPR is 98.1, 81, 16. Blood pressure 138/77. HEENT: Negative. NECK: Supple. HEART: Regular rate and rhythm. LUNGS: Clear. ABDOMEN: Dressings dry and intact. Abdominal binder is on. EXTREMITIES: Without peripheral edema. ASSESSMENT: Open repair of recurrent incarcerated incisional hernia, recurrent incarcerated umbilical hernia with mesh and reduction of small bowel volvulus. POSTOPERATIVE DIAGNOSES: 1. Recurrent incarcerated incisional hernia. 2. Recurrent incarcerated umbilical hernia. 3. Focal small bowel volvulus. Date of procedure: 07/28/2021. Surgeon: Kennedy Gagnon MD. PLAN: 1. Discontinue Leonardo catheter. 2. Decrease IV to 100 mL per hour. 3. Step 2 gastric bypass diet without cereal. 4. Colace 100 mg p.o. b.i.d. 5. Dulcolax 2 tabs b.i.d. 6. Continue ambulation and use of incentive spirometer. 7. We will evaluate p.r.n. or in a.m. Renetta Ureña PA-C /[id number]
[2021-07-29] MEDS: Bisacodyl 5 MG Tab PO SCH ×2 (08:54→22:08)
[2021-07-29] MEDS: Cetirizine 10 MG Tab PO SCH (08:54)
[2021-07-29] MEDS: Celecoxib 200 MG Cap PO SCH ×2 (08:54→22:08)
[2021-07-29] MEDS: Docusate Sodium 100 MG Cap PO SCH ×2 (08:54→22:08)
[2021-07-29] MEDS: Oxybutynin 5 MG Tab PO SCH ×2 (08:55→22:09)
[2021-07-29] MEDS: Cyclobenzaprine 10 MG Tab PO PRN (08:58)
[2021-07-29] MEDS: HYDROmorphone/Normal Saline 15 MG/30 ML PCA IV PRN (12:31)
[2021-07-29] MEDS: MVI, Adult with Vitamin K 10 ML, Thiamine 200 MG, Zinc/Copper/Manganese/Selenium 1 ML i... IV SCH ×4 (15:21)
[2021-07-29] MEDS: Pantoprazole 40 MG Vial IVPUSH SCH (15:22)
[2021-07-29] MEDS: traZODone 50 MG Tab PO SCH (22:09)
[2021-07-30] MEDS: Dextrose 5%-Lactated Ringers 1,000 ML IV SCH (01:26)
[2021-07-30] MEDS: Acetaminophen 500 MG Tab PO SCH ×3 (05:46→21:37)
--- NOTE | 2021-07-30 07:45 | PN ---
DATE OF SERVICE: 07/30/2021 SUBJECTIVE: Sachin is postop day 2. She reports her pain is better controlled. She is up in her room independently. Vital signs have been stable. Oral intake 1700, output 1050. REVIEW OF SYSTEMS: Remainder of review of systems negative for any pertinent positives and negatives. OBJECTIVE: GENERAL: Sachin Scott is a pleasant 51-year-old female. She is alert and orientated. VITAL SIGNS: TPR is 96.8, 82, 16, blood pressure 154/89. HEENT: Negative. NECK: Supple. HEART: Regular rate and rhythm. LUNGS: Clear. ABDOMEN: Dressing dry and intact. Abdominal binder on. EXTREMITIES: Without peripheral edema. ASSESSMENT: 1. Open repair of recurrent incarcerated incision. 2. Recurrent incarcerated umbilical hernia both with mesh and reduction of small bowel volvulus. POSTOPERATIVE DIAGNOSES: 1. Recurrent incarcerated incisional hernia. 2. Recurrent incarcerated umbilical hernia. 3. Focal small bowel volvulus. 4. Date of procedure: 07/28/2021. Surgeon: Kennedy Gagnon MD. PLAN: 1. Discontinue COMMUNITY ASSOCIATE. 2. Discontinue continuous pulse ox. 3. Oxycodone 5 mg q.4 hours p.r.n. pain. 4. Step 3 gastric bypass diet. 5. May shower. 6. Saline lock. 7. Continue ambulation and use of incentive spirometer. 8. We will evaluate p.r.n. or in a.m. Renetta Ureña PA-C /[id number]
[2021-07-30] MEDS: Acetaminophen 500 MG Tab PO PRN (07:48)
[2021-07-30] MEDS: oxyCODONE 5 MG Tab PO PRN ×3 (07:48→16:28)
[2021-07-30] MEDS ORDERED: Nystatin Topical Powder 15 GM Bottle TOP PRN (08:16)
[2021-07-30] MEDS ORDERED: Cyanocobalamin (Vitamin B12) 1,000 MCG/ML SDV IM ONE (09:00)
[2021-07-30] MEDS: Cetirizine 10 MG Tab PO SCH (09:35)
[2021-07-30] MEDS: Bisacodyl 5 MG Tab PO SCH ×2 (09:35→21:38)
[2021-07-30] MEDS: Celecoxib 200 MG Cap PO SCH ×2 (09:35→21:38)
[2021-07-30] MEDS: Docusate Sodium 100 MG Cap PO SCH ×2 (09:35→21:38)
[2021-07-30] MEDS: Oxybutynin 5 MG Tab PO SCH ×2 (09:36→21:37)
[2021-07-30] MEDS: Cyclobenzaprine 10 MG Tab PO PRN ×2 (13:35→21:38)
--- NOTE | 2021-07-30 14:40 | CR ---
CHEST: Portable 07/28/2021 at 12:30 PM CLINICAL HISTORY:Central line placement COMPARISON:None FINDINGS: Heart size and pulmonary vascular normal. Lungs are clear. Patient has a left subclavian line place. The tip is in the superior vena cava atrial junction region. Impression: No acute pulmonary process Left subclavian catheter in good position.
[2021-07-30] MEDS: Pantoprazole 40 MG Tab.CR PO SCH (16:28)
[2021-07-30] MEDS: traZODone 50 MG Tab PO SCH (21:36)
[2021-07-31] MEDS: oxyCODONE 5 MG Tab PO PRN ×2 (01:58→10:26)
[2021-07-31] MEDS: Acetaminophen 500 MG Tab PO PRN (02:09)
[2021-07-31] MEDS: Cyclobenzaprine 10 MG Tab PO PRN (04:39)
[2021-07-31] MEDS: Acetaminophen 500 MG Tab PO SCH (05:49)
[2021-07-31] MEDS: Pantoprazole 40 MG Tab.CR PO SCH (08:45)
[2021-07-31] MEDS: Celecoxib 200 MG Cap PO SCH (08:47)
[2021-07-31] MEDS: Docusate Sodium 100 MG Cap PO SCH (08:48)
[2021-07-31] MEDS: Bisacodyl 5 MG Tab PO SCH (08:49)
[2021-07-31] MEDS: Oxybutynin 5 MG Tab PO SCH (08:53)
[2021-07-31] MEDS: Cetirizine 10 MG Tab PO SCH (08:55)
--- NOTE | 2021-08-04 07:51 | DISCH ---
FINAL DIAGNOSES: 1. Recurrent incarcerated incisional hernia. 2. Recurrent incarcerated umbilical hernia. 3. Focal small bowel volvulus. SECONDARY DIAGNOSES: 1. Bariatric surgery status. 2. Treated hypothyroidism. 3. Treated hypertension. 4. Osteoarthritis involving both knees. 5. History of obstructive sleep apnea. 6. Stress incontinence. OPERATIVE PROCEDURES: Done on 07/28, exploratory laparotomy with: 1. Repair of incarcerated incisional hernia with mesh. 2. Repair of incarcerated umbilical hernia with mesh. 3. Reduction of small bowel volvulus with closure of internal hernia. SUMMARY: This is a 51-year-old female with a large recurrent incisional hernia in the epigastric area the patient underwent an exploration and was found to have recurrent umbilical hernia, which had incarcerated omentum within it as well and a small bowel volvulus involving focal area of the Manjit limb. Postoperatively, she was found to have she will be discharged home on her usual medications plus we will give her an additional prescription for Skelaxin 800 mg, in this case t.i.d. for muscle spasm; Celebrex 200 mg p.o. b.i.d. #28; and oxycodone 5 mg p.o. q.4 hours p.r.n. pain. Continue with Tylenol 1 g q.6 hours p.r.n. as well. She will be following up with Kaykay Pizarro [facility] on 08/10/2021. /[id number]
--- NOTE | 2021-08-14 14:52 | OR ---
DATE OF PROCEDURE: 07/28/2021 SURGEON: Kennedy Gagnon MD PREOPERATIVE DIAGNOSES: 1. Limited peripheral venous access. 2. Recurrent incisional hernia. POSTOPERATIVE DIAGNOSES: 1. Limited peripheral venous access. 2. Recurrent incarcerated incisional hernia. 3. Recurrent incarcerated umbilical hernia. 4. Focal small bowel volvulus. 5. Extensive intraabdominal adhesions. PROCEDURES PERFORMED: 1. Insertion of left subclavian vein triple-lumen catheter (09677). 2. Exploratory laparotomy with: a. Open repair of recurrent incarcerated incisional hernia and recurrent incarcerated umbilical hernia with mesh (40029, 66305, [id number]). b. Reduction of focal small bowel volvulus and closure of internal hernia (16350). c. Placement of Vicryl mesh to limit recurrent adhesions between pelvic and abdominal wall and underlying viscera (05594). ANESTHESIA: General. SUPERINTENDENT DRIVERS: Renetta Ureña PA-C INDICATIONS FOR PROCEDURE: The patient presents with a large recurrent incisional hernia. Plan is to proceed with open repair of this with a mesh technique. Potential risks including bleeding, infection, injury to the underlying viscera, problems with hernia recurring or the mesh becoming infected were all reviewed with the patient. The patient has very limited peripheral venous access, and as such, requires central venous access for operative procedure, and a central line will be placed. Potential risks of that procedure including bleeding, infection, pneumohemothorax, or vascular injury were likewise reviewed, and the patient wishes to proceed. DETAILS OF PROCEDURE: The patient was taken to the operating room and placed in a supine position. After general endotracheal anesthesia was induced, a Leonardo catheter was inserted. Initially, the upper chest and neck areas were prepped and draped, and the left subclavian vein was cannulated. A guidewire passed, and over this, a triple-lumen catheter positioned. Good in and outflow was noted, and ports were flushed with heparinized saline. The catheter was sutured to the skin with some 3-0 silk stitch. Subsequent chest x-ray showed no complications and good catheter position. The abdomen was then prepped and draped. An upper midline incision was then made and carried down through the skin and subcutaneous tissue down onto the area of the hernia which was located in the epigastric area over a fairly large portion of that area of the abdominal wall. The hernia sac was then dissected down to the level of the fascia in all directions and then opened. There were significant adhesions between the hernia sac and the underlying viscera including the transverse colon and omentum. These were dissected away from the hernia sac which was then excised with a combination of wu and electrocautery. There were significant underlying adhesions found in the area of herniation. These were taken down with a combination of blunt and cautery dissection, and in some places, stapled where there was some highly vascularized omentum being dissected free. The small bowel was inspected at this point, and the patient was noted to have a focal small bowel volvulus with a portion of the Manjit limb prolapsing underneath its own mesentery. This was reduced, and the underlying mesenteric defect was then approximated with a 2-0 silk stitch. At this point, the largest available mesh was used, this being a 27.4 x 34.[address] segment of [address] Mesh. This was eventually placed with an orientation with the long axis in the transverse orientation as that appeared to be the which recurrence would be prone. At 5 cm intervals around its circumference on the polypropylene side of the mesh, 2- 0 Vicryl sutures were placed, and the mesh was soaked in antibiotic-containing saline solution. At the premarked locations, stab wounds were placed in the abdominal wall where the sutures would then be pulled up. The mesh was then placed into the intraabdominal location and the left side of the abdominal wall. Sutures were then placed and pulled up snugly underneath this, and a Vicryl mesh was placed, this being a 12 inch square area of mesh. This was placed down towards the pelvic wall and underneath the abdominal wall to limit adhesion formation. Throughout the procedure, the mesh was irrigated with antibiotic- containing saline solution, prior to Vicryl mesh being placed the remaining sutures to the Ventrio ST Mesh were then pulled up, and the sutures were then tied. The mesh was further secured circumferentially with underlying tacking screws to the shelf of the mesh, and at that point, no further problems were noted. The primary fascial closure was then accomplished in the midline with #2 Vicryl stitch. Prior to closure, bilateral transversus abdominis plane blocks had been placed. The area of herniation, of note, included an additional area of umbilical hernia below the area of incisional hernia. This likewise included some incarcerated omentum and was excised and debrided as per the incisional hernia. Following the fascial closure, the wound was injected with some 0.5% Marcaine mixed with lidocaine. Subcutaneous tissue then approximated with 2 layers of 3-0 and 4-0 Vicryl stitch and the skin with wu. Dressing was applied. The patient was taken to the recovery room in satisfactory condition. Physician training assistant, Renetta Ureña, played an essential role in assisting in this case, helping to position the patient, place sutures and wu as indicated, as well as facilitate positioning of the patient and improve overall patient safety and efficiency. Kennedy Gagnon MD /[id number]
== END 2021-07-31 11:33 | disposition home or self-care (01) | DRG 329 ==
LOC: JP.SDS 06:06 → EDSTATUS 09:30 → JP.MS 13:12
PROVIDERS: ADMIT Surgery; ATTEND Surgery
PROC: 0DS80ZZ Reposition Small Intestine, Open Approach (ICD-10-PCS; principal; 2021-07-28)
PROC: 0WQF0ZZ Repair Abdominal Wall, Open Approach (ICD-10-PCS; 2021-07-28)
PROC: 0WUF0JZ Supplement Abdominal Wall with Synthetic Substitute, Open Approach (ICD-10-PCS; 2021-07-28)
PROC: 3E0M05Z Introduction of Adhesion Barrier into Peritoneal Cavity, Open Approach (ICD-10-PCS; 2021-07-28)
PROC: 02H633Z Insertion of Infusion Device into Right Atrium, Percutaneous Approach (ICD-10-PCS; 2021-07-28)
DX: K43.0 Incisional hernia with obstruction, without gangrene (principal); K56.2 Volvulus; Z68.44 Body mass index [BMI] 60.0-69.9, adult; F11.20 Opioid dependence, uncomplicated; K42.0 Umbilical hernia with obstruction, without gangrene; E03.9 Hypothyroidism, unspecified; E53.8 Deficiency of other specified B group vitamins; K21.9 Gastro-esophageal reflux disease without esophagitis; E66.01 Morbid (severe) obesity due to excess calories; E55.9 Vitamin D deficiency, unspecified; I10 Essential (primary) hypertension; Z98.84 Bariatric surgery status; Z79.890 Hormone replacement therapy; Z79.899 Other long term (current) drug therapy; Z98.890 Other specified postprocedural states
CPT/HCPCS: 36415; 71045; 71045-26; 82728; 84443; 88302; 94762; A9270-GY; C1713; C1781; C9113; J0171; J0330; J0690; J1100; J1170; J1642; J2020; J2185; J2250; J2405; J2704; J2710; J2795; J3010; J3410; J3411; J3420; J3490; J7120; J7121

== ENCOUNTER 2024-03-02 22:02 | Emergency (ER) | payer BC ==
[2024-03-02] MEDS: Acetaminophen/oxyCODONE 325-5 MG Tab PO ONE (22:55)
== END 2024-03-02 23:41 | disposition home or self-care (01) ==
LOC: JP.ED 22:02
DX: S62.524A Nondisplaced fracture of distal phalanx of right thumb, initial encounter for closed fracture (principal); S69.91XA Unspecified injury of right wrist, hand and finger(s), initial encounter; I10 Essential (primary) hypertension; E66.9 Obesity, unspecified; E03.9 Hypothyroidism, unspecified; Z91.040 Latex allergy status; Z91.048 Other nonmedicinal substance allergy status; Z88.8 Allergy status to other drugs, medicaments and biological substances; Z88.5 Allergy status to narcotic agent; Z79.890 Hormone replacement therapy; Z79.899 Other long term (current) drug therapy; Z68.31 Body mass index [BMI] 31.0-31.9, adult; W23.0XXA Caught, crushed, jammed, or pinched between moving objects, initial encounter
CPT/HCPCS: 73140; 99283; A9270

== ENCOUNTER 2025-01-21 08:33 | Inpatient (IN) | payer BC ==
[2025-01-21] MEDS ORDERED: Naloxone 0.4 MG/ML SDV IVPUSH PRN (09:00)
[2025-01-21 09:31] LABS: BASOPHILS ABSOLUTE AUTO 0.03 K/uL (0.00-0.10); BASOPHILS PERCENT AUTO 0.3 % (0.1-1.3); EOSINOPHILS ABSOLUTE AUTO 0.05 K/uL (0.00-0.40); EOSINOPHILS PERCENT AUTO 0.6 % (0.0-5.4); HEMATOCRIT 42.6 % (34.3-46.0); HEMOGLOBIN 13.9 g/dL (11.2-15.5); IMMATURE GRAN ABSOLUTE AUTO 0.03 K/uL (0.00-0.23); IMMATURE GRAN PERCENT AUTO 0.3 % (0.0-0.7); LYMPHOCYTES ABSOLUTE AUTO 1.73 K/uL (0.8-3.3); LYMPHOCYTES PERCENT AUTO 19.2 % (11.4-47.7); MEAN CORPUSCULAR HEMOGLOBIN 29.7 pg (31.6-35.5); MEAN CORPUSCULAR HGB CONC 32.6 g/dL (31.6-35.5); MONOCYTES ABSOLUTE AUTO 0.52 K/uL (0.20-0.90); MONOCYTES PERCENT AUTO 5.8 % (3.3-12.6); NEUTROPHILS ABSOLUTE AUTO 6.65 K/uL (1.0-7.6); NEUTROPHILS PERCENT AUTO 73.8 % (40.0-78.1); PLATELET COUNT,PLT 235 K/uL (130-375); RED BLOOD CELL COUNT 4.68 M/uL (3.77-5.24)
[2025-01-21] MEDS: Ketorolac 30 MG/ML SDV IVPUSH ONE (09:39)
[2025-01-21] MEDS: Sodium Chloride 0.9% 1,000 ML IV ONE (09:39)
[2025-01-21 09:40] LABS: APPEARANCE,URINE CLEAR (CLEAR); BILIRUBIN,URINE NEGATIVE (NEGATIVE); COLOR,URINE YELLOW (YELLOW); GLUCOSE,URINE NEGATIVE (NEGATIVE); KETONES,URINE TRACE mg/dL (NEGATIVE); LEUKOCYTE ESTERASE,URINE NEGATIVE (NEGATIVE); NITRITE,URINE NEGATIVE (NEGATIVE); OCCULT BLOOD,URINE NEGATIVE (NEGATIVE); PROTEIN,URINE NEGATIVE (NEGATIVE); UROBILINOGEN,URINE 0.2 EU/dL (0.2-1.0)
[2025-01-21 09:49] LABS: AMORPHOUS SEDIMENT,URINE NOT SEEN; BACTERIA,URINE RARE; EPITHELIAL CELLS,URINE RARE; MUCUS,URINE RARE; RBC,URINE 0-5 (0-5); WBC,URINE 0-5 (0-5)
[2025-01-21] MEDS ORDERED: LORazepam 1 MG Tab PO PRN (09:50)
[2025-01-21 10:04] LABS: A/G RATIO 1.2 (1.2-2.2); ALANINE AMINOTRANSFERASE,ALT 22 U/L (12-78); ALKALINE PHOSPHATASE 107 U/L (46-116); ASPARTATE AMNIOTRANSFERASE,AST 18 U/L (15-37); BILIRUBIN TOTAL 0.6 mg/dL (0.2-1.0); BLOOD UREA NITROGEN,BUN 13 mg/dL (7-18); CALCIUM 8.4 mg/dL (8.5-10.1); CARBON DIOXIDE,CO2 24 mmol/L (21-32); CHLORIDE,CL 109 mmol/L (100-108); CREATININE 0.5 mg/dL (0.6-1.0); EST CRCL DRUG DOSING (CG) 102.69 mL/min; ESTIMATED GFR 109 mL/min (>60); GLUCOSE RANDOM 102 mg/dL (74-106); POTASSIUM,K 3.5 mmol/L (3.6-5.2); PROTEIN TOTAL,TP 5.6 g/dL (6.4-8.2); SODIUM,NA 144 mmol/L (140-148)
[2025-01-21 10:05] LABS: ANION GAP 14.5 mmol/L (5.0-14.0)
[2025-01-21] MEDS: Ondansetron 4 MG/2 ML SDV IVPUSH ONE (10:10)
[2025-01-21] MEDS: Sodium Chloride 0.9% 10 ML Syringe FLUSH PRN (10:28)
[2025-01-21] MEDS: Sodium Chloride 0.9% 80 ML IV ONE (10:28)
[2025-01-21] MEDS: Iopamidol 612 MG/ML 100 ML Bottle IV PRN (10:28)
[2025-01-21] MEDS: HYDROmorphone 1 MG/ML Syringe IVPUSH PRN (12:14)
[2025-01-21] MEDS: Lidocaine 4% Top Soln 50 ML Bottle MUCMEM ONE (12:15)
[2025-01-21] MEDS ORDERED: Ondansetron 4 MG/2 ML SDV IV PRN (13:51)
[2025-01-21] MEDS ORDERED: Ondansetron 4 MG Tab.DIS PO PRN (13:51)
[2025-01-21] MEDS ORDERED: LORazepam 2 MG/ML SDV IVPUSH PRN (13:51)
[2025-01-21] MEDS: Sodium Chloride 0.9% 1,000 ML IV SCH (14:14)
[2025-01-21] MEDS: Morphine 2 MG/ML SYRINGE IVPUSH PRN (14:23)
[2025-01-21] MEDS: Phenol/Sodium Phenolate Spray 180 ML Bottle MUCMEM PRN (15:11)
[2025-01-21] MEDS: Benzocaine/Cetylpyridinium/Menthol Lozenge MUCMEM PRN (15:12)
[2025-01-21] MEDS ORDERED: Promethazine 25 MG Tab PO PRN (16:16)
[2025-01-21] MEDS ORDERED: Nystatin Topical Powder 15 GM Bottle TOP SCH (16:30)
[2025-01-21] MEDS: HYOSCYAMINE 0.125 MG PO SCH (17:32)
[2025-01-21] MEDS: traZODone 50 MG Tab PO SCH (20:54)
[2025-01-21] MEDS ORDERED: hydrOXYzine HCl 10 MG Tab PO SCH (21:00)
[2025-01-21] MEDS ORDERED: traZODone 50 MG Tab PO SCH (21:00)
[2025-01-21] MEDS ORDERED: Nystatin Crm 15 GM Tube TOP SCH (21:00)
[2025-01-22] MEDS: Ketorolac 30 MG/ML SDV IVPUSH PRN (02:50)
[2025-01-22] MEDS: Pantoprazole 40 MG Vial IVPUSH SCH ×2 (02:53→20:29)
[2025-01-22 06:11] LABS: HEMATOCRIT 37.8 % (34.3-46.0); HEMOGLOBIN 12.5 g/dL (11.2-15.5); MEAN CORPUSCULAR HEMOGLOBIN 29.9 pg (31.6-35.5); MEAN CORPUSCULAR HGB CONC 33.1 g/dL (31.6-35.5); MEAN CORPUSCULAR VOLUME 90.4 fL (81.4-99.0); RED BLOOD CELL COUNT 4.18 M/uL (3.77-5.24); WHITE BLOOD CELL COUNT,WBC 8.2 K/uL (3.2-11.0)
[2025-01-22 06:33] LABS: ALANINE AMINOTRANSFERASE,ALT 17 U/L (12-78); ALBUMIN 2.5 g/dL (3.4-5.0); ALKALINE PHOSPHATASE 87 U/L (46-116); ASPARTATE AMNIOTRANSFERASE,AST 14 U/L (15-37); BILIRUBIN TOTAL 0.6 mg/dL (0.2-1.0); BLOOD UREA NITROGEN,BUN 6 mg/dL (7-18); CARBON DIOXIDE,CO2 24 mmol/L (21-32); CHLORIDE,CL 111 mmol/L (100-108); CREATININE 0.4 mg/dL (0.6-1.0); EST CRCL DRUG DOSING (CG) 128.36 mL/min; ESTIMATED GFR 115 mL/min (>60); GLUCOSE RANDOM 89 mg/dL (74-106); POTASSIUM,K 3.2 mmol/L (3.6-5.2); PROTEIN TOTAL,TP 4.9 g/dL (6.4-8.2); SODIUM,NA 144 mmol/L (140-148)
[2025-01-22 06:49] LABS: ANION GAP 12.2 mmol/L (5.0-14.0)
[2025-01-22] MEDS: Cetirizine 10 MG Tab PO SCH (08:04)
[2025-01-22] MEDS: Estradiol 0.5 MG Tab PO SCH (08:04)
[2025-01-22] MEDS ORDERED: Non-Formulary Medication 1 Each (Cholecalciferol (Vitamin D3) [Vitamin D3] 1,000 UNIT Caps PO SCH (09:00)
[2025-01-22] MEDS ORDERED: Non-Formulary Medication 1 Each (Levothyroxine Sodium [Synthroid] 75 MCG Tablet) PO SCH (09:00)
[2025-01-22] MEDS: Acetaminophen 325 MG Tab PO PRN (19:53)
[2025-01-23 06:04] LABS: BASOPHILS ABSOLUTE AUTO 0.03 K/uL (0.00-0.10); BASOPHILS PERCENT AUTO 0.4 % (0.1-1.3); EOSINOPHILS ABSOLUTE AUTO 0.11 K/uL (0.00-0.40); EOSINOPHILS PERCENT AUTO 1.5 % (0.0-5.4); HEMATOCRIT 37.3 % (34.3-46.0); HEMOGLOBIN 12.2 g/dL (11.2-15.5); IMMATURE GRAN ABSOLUTE AUTO 0.03 K/uL (0.00-0.23); IMMATURE GRAN PERCENT AUTO 0.4 % (0.0-0.7); LYMPHOCYTES ABSOLUTE AUTO 1.44 K/uL (0.8-3.3); MEAN CORPUSCULAR HEMOGLOBIN 29.5 pg (31.6-35.5); MEAN CORPUSCULAR HGB CONC 32.7 g/dL (31.6-35.5); MEAN CORPUSCULAR VOLUME 90.1 fL (81.4-99.0); MONOCYTES ABSOLUTE AUTO 0.56 K/uL (0.20-0.90); MONOCYTES PERCENT AUTO 7.4 % (3.3-12.6); NEUTROPHILS PERCENT AUTO 71.3 % (40.0-78.1); PLATELET COUNT,PLT 191 K/uL (130-375); RED BLOOD CELL COUNT 4.14 M/uL (3.77-5.24); WHITE BLOOD CELL COUNT,WBC 7.6 K/uL (3.2-11.0)
[2025-01-23 06:24] LABS: A/G RATIO 1.1 (1.2-2.2); ALANINE AMINOTRANSFERASE,ALT 18 U/L (12-78); ALBUMIN 2.7 g/dL (3.4-5.0); ALKALINE PHOSPHATASE 89 U/L (46-116); ASPARTATE AMNIOTRANSFERASE,AST 17 U/L (15-37); BILIRUBIN TOTAL 0.6 mg/dL (0.2-1.0); BLOOD UREA NITROGEN,BUN 6 mg/dL (7-18); CALCIUM 8.2 mg/dL (8.5-10.1); CARBON DIOXIDE,CO2 20 mmol/L (21-32); CHLORIDE,CL 109 mmol/L (100-108); CREATININE 0.4 mg/dL (0.6-1.0); EST CRCL DRUG DOSING (CG) 128.36 mL/min; ESTIMATED GFR 115 mL/min (>60); GLUCOSE RANDOM 72 mg/dL (74-106); POTASSIUM,K 3.3 mmol/L (3.6-5.2); PROTEIN TOTAL,TP 5.2 g/dL (6.4-8.2); SODIUM,NA 143 mmol/L (140-148)
[2025-01-23 06:32] LABS: ANION GAP 17.3 mmol/L (5.0-14.0)
[2025-01-23] MEDS: Potassium Chloride 20 MEQ Tab.ER PO SCH (09:15)
[2025-01-24 06:07] LABS: BASOPHILS PERCENT AUTO 0.2 % (0.1-1.3); EOSINOPHILS ABSOLUTE AUTO 0.13 K/uL (0.00-0.40); EOSINOPHILS PERCENT AUTO 2.5 % (0.0-5.4); HEMOGLOBIN 11.9 g/dL (11.2-15.5); IMMATURE GRAN PERCENT AUTO 0.2 % (0.0-0.7); LYMPHOCYTES ABSOLUTE AUTO 1.64 K/uL (0.8-3.3); MEAN CORPUSCULAR HEMOGLOBIN 29.5 pg (31.6-35.5); MEAN CORPUSCULAR HGB CONC 33.1 g/dL (31.6-35.5); MEAN CORPUSCULAR VOLUME 89.3 fL (81.4-99.0); MONOCYTES ABSOLUTE AUTO 0.54 K/uL (0.20-0.90); MONOCYTES PERCENT AUTO 10.5 % (3.3-12.6); NEUTROPHILS ABSOLUTE AUTO 2.79 K/uL (1.0-7.6); NEUTROPHILS PERCENT AUTO 54.6 % (40.0-78.1); PLATELET COUNT,PLT 190 K/uL (130-375); RED BLOOD CELL COUNT 4.03 M/uL (3.77-5.24); WHITE BLOOD CELL COUNT,WBC 5.1 K/uL (3.2-11.0)
[2025-01-24 06:11] LABS: BASOPHILS ABSOLUTE AUTO 0.01 K/uL (0.00-0.10); IMMATURE GRAN ABSOLUTE AUTO 0.01 K/uL (0.00-0.23)
[2025-01-24 06:33] LABS: ALANINE AMINOTRANSFERASE,ALT 19 U/L (12-78); ALBUMIN 2.7 g/dL (3.4-5.0); ALKALINE PHOSPHATASE 88 U/L (46-116); ASPARTATE AMNIOTRANSFERASE,AST 20 U/L (15-37); BILIRUBIN TOTAL 0.6 mg/dL (0.2-1.0); BLOOD UREA NITROGEN,BUN 3 mg/dL (7-18); CALCIUM 8.5 mg/dL (8.5-10.1); CARBON DIOXIDE,CO2 26 mmol/L (21-32); CHLORIDE,CL 110 mmol/L (100-108); CREATININE 0.4 mg/dL (0.6-1.0); EST CRCL DRUG DOSING (CG) 128.36 mL/min; ESTIMATED GFR 115 mL/min (>60); GLUCOSE RANDOM 94 mg/dL (74-106); PROTEIN TOTAL,TP 5.3 g/dL (6.4-8.2); SODIUM,NA 144 mmol/L (140-148)
[2025-01-24] MEDS: Sennosides/Docusate Sodium 50-8.6 MG Tab PO PRN (08:10)
[2025-01-24] MEDS: Magnesium Hydroxide 400 MG/5 ML Susp 30 ML Cup PO PRN (08:10)
== END 2025-01-24 11:00 | disposition home or self-care (01) | DRG 254 ==
LOC: JP.ED 08:33 → UNDOADMIN 13:17 → JP.ICU 13:17
PROVIDERS: ADMIT Hospitalist; ATTEND Hospitalist
PROC: 0D9670Z Drainage of Stomach with Drainage Device, Via Natural or Artificial Opening (ICD-10-PCS; principal; 2025-01-21)
DX: K43.6 Other and unspecified ventral hernia with obstruction, without gangrene (principal); R18.8 Other ascites; I10 Essential (primary) hypertension; M19.90 Unspecified osteoarthritis, unspecified site; G43.909 Migraine, unspecified, not intractable, without status migrainosus; E03.9 Hypothyroidism, unspecified; E66.9 Obesity, unspecified; E87.6 Hypokalemia; Z96.659 Presence of unspecified artificial knee joint; H54.7 Unspecified visual loss; Z98.84 Bariatric surgery status; Z98.890 Other specified postprocedural states; Z88.8 Allergy status to other drugs, medicaments and biological substances; Z79.899 Other long term (current) drug therapy; Z68.32 Body mass index [BMI] 32.0-32.9, adult; Z90.89 Acquired absence of other organs; Z87.891 Personal history of nicotine dependence
CPT/HCPCS: 36415; 71045; 71045-26; 74177; 74177-26; 80053; 81001; 83605; 83690; 85025; 85027; 96361; 96374; 96375; 99222; 99231; 99232; 99239; 99285; 99285-25; A9270-GY; J1171; J1885; J2270; J2405; J2470; J7030; Q9967

== ENCOUNTER 2025-06-28 07:42 | Day surgery (SDC) | payer BC ==
[2025-06-28] MEDS: Lactated Ringers 1,000 ML IV SCH (08:06)
[2025-06-28] MEDS ORDERED: Propofol 200 MG/20 ML SDV ONE (08:59)
[2025-06-28] MEDS ORDERED: fentaNYL 100 MCG/2 ML SDV ONE (08:59)
[2025-06-28] MEDS ORDERED: Midazolam 1 MG/ML 2 ML SDV ONE (08:59)
== END 2025-06-28 10:55 | disposition home or self-care (01) ==
LOC: JP.SDS 07:42
PROVIDERS: ATTEND Surgery
DX: R13.10 Dysphagia, unspecified (principal)
CPT/HCPCS: 43239; 43249; 88305; C1726; J2250; J2704; J3010; J7120; 00731-QZ